=== PATIENT | male | born 1955 | race Two or more races ===

== ENCOUNTER 2021-06-10 19:24 | Inpatient (IN) | payer BC, OTHER ==
[~2021-06-10] VITALS: Ht 167.6 cm; Wt 67.8 kg
[2021-06-10 20:13] LABS: Basophils # (auto) 0 10 ^3/uL (0-0.2); Eosinophils # (auto) 0.2 10 ^3/uL (0-0.8); Eosinophils % (auto) 1.9 % (0.0-7.0); Hemoglobin 15.3 g/dL (13.5-17.5); Neutrophils # (auto) 5.5 10 ^3/uL (1.6-8.6)
[2021-06-10 20:15] LABS: Basophils % (auto) 0.2 % (0.0-2.0); Hematocrit 43.1 % (41.0-53.0); Lymphocytes # (auto) 2.4 10 ^3/uL (0.4-5.4); Mean Corpuscular Hemoglobin 34.2 pg (28.0-32.0); Mean Corpuscular Hgb Conc. 35.5 g/dL (32.0-36.0); Mean Corpuscular Volume 96.2 fL (80.0-100.0); Monocytes # (auto) 0.6 10 ^3/uL (0-1.3); Monocytes % (auto) 6.9 % (0.0-12.0); Nucleated Red Blood Cells % 0.2 %; Red Blood Cells 4.48 10^6/uL (4.5-5.90); Red Cell Distribution Width 14.3 % (11.8-14.3); White Blood Cell 8.7 10^3/uL (4.4-10.8)
[2021-06-10 20:26] LABS: Albumin 3.1 g/dL (3.4-5.0); Calcium 8.5 mg/dL (8.5-10.1)
[2021-06-10 20:29] LABS: BUN/Creatinine Ratio 8.6; Bilirubin, Total 0.8 mg/dL (0.2-1.0); Total Protein 7.2 g/dL (6.4-8.2)
[2021-06-10 20:36] LABS: Potassium 2.2 mmol/L (3.5-5.1)
[2021-06-10] MEDS ORDERED: POTASSIUM CHL 20 Meq TABLET PO ONE (21:00)
[2021-06-10] MEDS ORDERED: SODIUM CHLORIDE 0.9% 1,000 ML IV ONE (21:00)
[2021-06-10] MEDS ORDERED: ONDANSETRON HCL 4 MG/2 ML VIAL IV ONE (21:30)
[2021-06-10] MEDS ORDERED: MORPHINE SULFATE 4 MG/ML SYR/VIAL IV ONE (21:30)
[2021-06-10] MEDS ORDERED: VANCOMYCIN PER PHARMACY 0 MG IV SCH (21:30)
[2021-06-10] MEDS ORDERED: VANCOMYCIN 1GM/250ML 250 ML IV ONE (21:30)
[2021-06-10] MEDS ORDERED: NITROGLYCERIN 0.4 MG SL TAB SL PRN (22:00)
[2021-06-10] MEDS ORDERED: DEXTROSE (50%) 50ML SYRG IV PRN (22:00)
[2021-06-10] MEDS ORDERED: INSULIN LANTUS (GLARGINE) 1 /0.01ml (100units/ml) SC SCH (22:00)
[2021-06-10] MEDS ORDERED: HYDROcodone-ACET 5/325MG TAB PO PRN (22:00)
[2021-06-10] MEDS ORDERED: MORPHINE SULFATE INJECTION 2 MG/ML SYRG IV PRN (22:00)
[2021-06-10] MEDS ORDERED: ACETAMINOPHEN 325 MG TAB PO PRN (22:00)
[2021-06-10] MEDS ORDERED: ONDANSETRON HCL 4 MG/2 ML VIAL IV PRN (22:00)
[2021-06-10 22:31] LABS: Urine Bacteria FEW /hpf (None Seen); Urine Blood Negative /uL (Negative); Urine Specific Gravity 1.011 (1.001-1.035); Urine WBC 2 /hpf (0 - 3)
[2021-06-10 22:39] LABS: Lactic Acid w/Reflex 4.7 mmol/L (0.4-2.0)
[2021-06-10] MEDS: POTASSIUM CHL 20MEQ/100ML 100 ML IV SCH (23:00)
[2021-06-10] MEDS: SODIUM CHLORIDE 0.9% 1,000 ML IV SCH (23:20)
[2021-06-11] MEDS: ACCU-CHEK COMFORT CURVE STRIP VI SCH ×5 (00:07→21:39)
[2021-06-11] MEDS: ASCORBIC ACID 500 MG TAB PO SCH ×2 (00:12→09:50)
[2021-06-11] MEDS: InsuLIN REG 1unit/0.01ml Soln (100units/ml) SC SCH ×4 (00:12→21:40)
[2021-06-11] MEDS: POTASSIUM CHL 20MEQ/100ML 100 ML IV SCH (00:57)
[2021-06-11] MEDS: INSULIN LANTUS (GLARGINE) 1 /0.01ml (100units/ml) SC SCH ×2 (00:58→06:26)
[2021-06-11 01:39] VITALS: BP 141/75
[2021-06-11] MEDS ORDERED: GLIP5TAB12 PO (02:30)
[2021-06-11] MEDS ORDERED: DOXY100C2 PO (02:30)
[2021-06-11] MEDS ORDERED: METF-370 PO (02:30)
[2021-06-11] MEDS: MORPHINE SULFATE 4 MG/ML SYR/VIAL IV PRN ×3 (03:31→18:48)
[2021-06-11 05:11] VITALS: BP 119/70
[2021-06-11 05:57] LABS: Albumin 2.8 g/dL (3.4-5.0); BUN/Creatinine Ratio 11.5; Calcium 7.6 mg/dL (8.5-10.1)
[2021-06-11 06:00] LABS: Lactic Acid w/Reflex 2.2 mmol/L (0.4-2.0); Potassium 2.8 mmol/L (3.5-5.1); Total Protein 6.2 g/dL (6.4-8.2)
[2021-06-11 06:25] LABS: Basophils # (auto) 0 10 ^3/uL (0-0.2); Basophils % (auto) 0.7 % (0.0-2.0); Eosinophils # (auto) 0.2 10 ^3/uL (0-0.8); Eosinophils % (auto) 2.1 % (0.0-7.0); Hematocrit 39.1 % (41.0-53.0); Hemoglobin 14.3 g/dL (13.5-17.5); Lymphocytes # (auto) 2.5 10 ^3/uL (0.4-5.4); Lymphocytes % (auto) 33.4 % (10.0-50.0); Mean Corpuscular Hemoglobin 35.1 pg (28.0-32.0); Mean Corpuscular Volume 95.9 fL (80.0-100.0); Monocytes # (auto) 0.8 10 ^3/uL (0-1.3); Monocytes % (auto) 10.2 % (0.0-12.0); Neutrophils % (auto) 53.6 % (37.0-80.0); Nucleated Red Blood Cells % 0.2 %; Red Blood Cells 4.08 10^6/uL (4.5-5.90); Red Cell Distribution Width 14.3 % (11.8-14.3); White Blood Cell 7.4 10^3/uL (4.4-10.8)
[2021-06-11 06:26] LABS: Mean Corpuscular Hgb Conc. 36.6 g/dL (32.0-36.0)
[2021-06-11] MEDS ORDERED: POTASSIUM CHL 20 Meq TABLET PO ONE ×2 (06:45→21:15)
[2021-06-11] MEDS ORDERED: POTASSIUM CHL 20MEQ/100ML 100 ML IV ONE (06:45)
[2021-06-11] MEDS ORDERED: InsuLIN REG 1unit/0.01ml Soln (100units/ml) SC SCH (07:00)
[2021-06-11 09:00] VITALS: BP 144/86
[2021-06-11] MEDS: MULTIPLE VITAMIN TAB PO SCH (09:50)
[2021-06-11] MEDS ORDERED: ENOXAPARIN SOD 40 MG/0.4 ML SYRINGE SC SCH (10:00)
[2021-06-11] MEDS ORDERED: FAMOTIDINE 20 MG TAB PO SCH (10:00)
[2021-06-11] MEDS ORDERED: ZINC SULFATE 220mg CAP or TAB PO SCH (10:00)
[2021-06-11] MEDS ORDERED: MORPHINE SULFATE INJECTION 2 MG/ML SYRG IV ONE (11:15)
[2021-06-11 13:00] VITALS: BP 139/85
[2021-06-11] MEDS: FOLIC ACID 1 MG, MULTIPLE VITAMIN 10 ML, MAGNESIUM SULF SDV 50% 8 MEQ, THIAMINE INJ 100... INJ SCH ×5 (13:15)
[2021-06-11] MEDS: VANCOMYCIN 1GM/250ML 250 ML IV SCH ×2 (13:17→22:56)
[2021-06-11] MEDS: SODIUM CHLORIDE 0.9% 1,000 ML IV SCH (14:40)
[2021-06-11 16:47] VITALS: BP 144/96
[2021-06-11] MEDS ORDERED: InsuLIN REG 1unit/0.01ml Soln (100units/ml) SC ONE (18:30)
[2021-06-11 22:00] VITALS: BP 132/78
[2021-06-12] MEDS: MORPHINE SULFATE 4 MG/ML SYR/VIAL IV PRN ×4 (00:17→18:20)
[2021-06-12 05:00] VITALS: BP 121/79
[2021-06-12] MEDS: InsuLIN REG 1unit/0.01ml Soln (100units/ml) SC SCH ×4 (06:16→22:57)
[2021-06-12] MEDS: ACCU-CHEK COMFORT CURVE STRIP VI SCH ×4 (06:16→22:57)
[2021-06-12] MEDS: SODIUM CHLORIDE 0.9% 1,000 ML IV SCH ×2 (07:20→23:01)
[2021-06-12 09:00] VITALS: BP 141/79
[2021-06-12] MEDS: DOCUSATE SOD 100 MG CAP PO PRN (09:07)
[2021-06-12] MEDS: MULTIPLE VITAMIN TAB PO SCH (09:07)
[2021-06-12] MEDS: VANCOMYCIN 1GM/250ML 250 ML IV SCH ×2 (11:44→23:00)
[2021-06-12 12:01] LABS: Potassium 3.6 mmol/L (3.5-5.1)
[2021-06-12 12:05] LABS: BUN/Creatinine Ratio 7.8; Calcium 7.6 mg/dL (8.5-10.1)
[2021-06-12 13:00] VITALS: BP 130/68
[2021-06-12] MEDS: FOLIC ACID 1 MG, MULTIPLE VITAMIN 10 ML, MAGNESIUM SULF SDV 50% 8 MEQ, THIAMINE INJ 100... INJ SCH ×5 (14:05)
[2021-06-12 17:00] VITALS: BP 138/70
[2021-06-12 22:00] VITALS: BP 144/88
[2021-06-12] MEDS ORDERED: MORPHINE SULFATE INJECTION 2 MG/ML SYRG ONE (22:33)
[2021-06-13 05:00] VITALS: BP 142/87
[2021-06-13] MEDS: ACCU-CHEK COMFORT CURVE STRIP VI SCH ×4 (06:46→21:20)
[2021-06-13] MEDS: MORPHINE SULFATE 4 MG/ML SYR/VIAL IV PRN ×4 (06:47→22:03)
[2021-06-13] MEDS: InsuLIN REG 1unit/0.01ml Soln (100units/ml) SC SCH ×4 (06:48→21:20)
[2021-06-13 08:13] VITALS: BP 131/84
[2021-06-13] MEDS: MULTIPLE VITAMIN TAB PO SCH (09:57)
[2021-06-13] MEDS: VANCOMYCIN 1GM/250ML 250 ML IV SCH ×2 (10:39→21:08)
[2021-06-13 12:58] VITALS: BP 119/72
[2021-06-13] MEDS: DOCUSATE SOD 100 MG CAP PO PRN (13:09)
[2021-06-13] MEDS: FOLIC ACID 1 MG, MULTIPLE VITAMIN 10 ML, MAGNESIUM SULF SDV 50% 8 MEQ, THIAMINE INJ 100... INJ SCH ×5 (14:02)
[2021-06-13] MEDS: SODIUM CHLORIDE 0.9% 1,000 ML IV SCH (16:40)
[2021-06-13] MEDS: chlordiazePOXIDE HCL 25 MG CAP PO SCH ×2 (17:31→23:40)
[2021-06-13 22:21] VITALS: BP 121/73
[2021-06-14] MEDS: MORPHINE SULFATE 4 MG/ML SYR/VIAL IV PRN (02:40)
[2021-06-14 05:28] VITALS: BP 149/76
[2021-06-14 05:55] LABS: Albumin 2.6 g/dL (3.4-5.0); Calcium 7.7 mg/dL (8.5-10.1)
[2021-06-14 05:56] LABS: Basophils # (auto) 0 10 ^3/uL (0-0.2); Basophils % (auto) 0.6 % (0.0-2.0); Lymphocytes # (auto) 1.5 10 ^3/uL (0.4-5.4); Red Cell Distribution Width 14.6 % (11.8-14.3)
[2021-06-14 05:59] LABS: BUN/Creatinine Ratio 12.5; Total Protein 6.1 g/dL (6.4-8.2)
[2021-06-14 06:01] LABS: Eosinophils # (auto) 0.2 10 ^3/uL (0-0.8); Eosinophils % (auto) 2.6 % (0.0-7.0); Hemoglobin 13.7 g/dL (13.5-17.5); Lymphocytes % (auto) 22.7 % (10.0-50.0); Mean Corpuscular Hemoglobin 35.3 pg (28.0-32.0); Mean Corpuscular Hgb Conc. 35.9 g/dL (32.0-36.0); Mean Corpuscular Volume 98.2 fL (80.0-100.0); Monocytes # (auto) 0.7 10 ^3/uL (0-1.3); Monocytes % (auto) 10.4 % (0.0-12.0); Neutrophils # (auto) 4.2 10 ^3/uL (1.6-8.6); Neutrophils % (auto) 63.7 % (37.0-80.0); Nucleated Red Blood Cells % 0.1 %; Red Blood Cells 3.87 10^6/uL (4.5-5.90); White Blood Cell 6.6 10^3/uL (4.4-10.8)
[2021-06-14] MEDS: chlordiazePOXIDE HCL 25 MG CAP PO SCH ×2 (06:26→11:40)
[2021-06-14] MEDS: ACCU-CHEK COMFORT CURVE STRIP VI SCH ×3 (06:27→16:22)
[2021-06-14] MEDS: InsuLIN REG 1unit/0.01ml Soln (100units/ml) SC SCH ×3 (06:27→16:22)
[2021-06-14 06:35] LABS: Potassium 2.8 mmol/L (3.5-5.1)
[2021-06-14] MEDS: VANCOMYCIN 1GM/250ML 250 ML IV SCH (06:58)
[2021-06-14] MEDS ORDERED: POTASSIUM CHL 20 Meq TABLET PO ONE (07:15)
[2021-06-14 09:00] VITALS: BP 106/63
[2021-06-14] MEDS: SODIUM CHLORIDE 0.9% 1,000 ML IV SCH (09:20)
[2021-06-14] MEDS: MULTIPLE VITAMIN TAB PO SCH (09:56)
[2021-06-14] MEDS: FOLIC ACID 1 MG, MULTIPLE VITAMIN 10 ML, MAGNESIUM SULF SDV 50% 8 MEQ, THIAMINE INJ 100... INJ SCH ×5 (12:00)
[2021-06-14 13:40] VITALS: BP 111/69
== END 2021-06-14 16:50 | disposition home or self-care (01) | DRG 602 ==
LOC: ER 19:26 → TELE 21:47 → TELE-WESTW 23:38
PROVIDERS: ADMIT Nurse Practitioner Family; ATTEND Family Medicine
DX: L03.012 Cellulitis of left finger (principal); G93.41 Metabolic encephalopathy; E87.1 Hypo-osmolality and hyponatremia; M86.60 Other chronic osteomyelitis, unspecified site; E11.21 Type 2 diabetes mellitus with diabetic nephropathy; E11.40 Type 2 diabetes mellitus with diabetic neuropathy, unspecified; E11.69 Type 2 diabetes mellitus with other specified complication; E87.6 Hypokalemia; F10.229 Alcohol dependence with intoxication, unspecified; G20 Parkinson's disease; I10 Essential (primary) hypertension; Z20.822 Contact with and (suspected) exposure to COVID-19; E11.65 Type 2 diabetes mellitus with hyperglycemia; Z82.3 Family history of stroke
CPT/HCPCS: 36415; 73140; 73218; 80048; 80053; 80202; 80320; 81001; 82962; 83036; 83605; 83735; 84132; 84443; 84550; 85025; 86141; 87040; 87426; 93005; 96365; 96375; 99291; G0378; J1815; J2405; J3480

== ENCOUNTER 2024-03-10 10:03 | Inpatient (IN) | payer OTHER, MEDICAID ==
[~2024-03-10] VITALS: Ht 167.6 cm; Wt 78.3 kg
[2024-03-10] VITALS (10 sets, daily range): BP systolic 113–143; BP diastolic 63–85; PULSE 68–114; RESP 22–30; TEMP 98.2–99.6; O2SAT 92–94
[~2024-03-10 10:03] MED LIST: DOXY100C4 PO; GLIP5TAB21 PO; METF-370 PO
[2024-03-10 11:17] LABS: Eosinophils # (auto) 0 10 ^3/uL (0-0.8); Neutrophils % (auto) 85.2 % (37.0-80.0)
[2024-03-10 11:20] LABS: Basophils # (auto) 0.1 10 ^3/uL (0-0.2); Basophils % (auto) 0.5 % (0.0-2.0); Eosinophils % (auto) 0.1 % (0.0-7.0); Hematocrit 22.9 % (41.0-53.0); Mean Corpuscular Hemoglobin 18.4 pg (28.0-32.0); Mean Corpuscular Hgb Conc. 27.4 g/dL (32.0-36.0); Mean Corpuscular Volume 67.1 fL (80.0-100.0); Monocytes # (auto) 1.1 10 ^3/uL (0-1.3); Monocytes % (auto) 7.2 % (0.0-12.0); Neutrophils # (auto) 12.7 10 ^3/uL (1.6-8.6); Nucleated Red Blood Cells % 1.5 %; Red Blood Cells 3.42 10^6/uL (4.5-5.90); White Blood Cell 14.9 10^3/uL (4.4-10.8)
[2024-03-10 11:44] LABS: Alanine Aminotransferase 25 U/L (7-40); Alkaline Phosphatase 79 U/L (46-116); Calcium 7.9 mg/dL (8.7-10.4); Chloride 97 mmol/L (98-107)
[2024-03-10 11:45] LABS: Albumin 3.9 g/dL (3.2-4.8); Anion Gap 10 (5-15); Aspartate Aminotransferase 34 U/L (13-40); BUN/Creatinine Ratio 27.7 (10.0-20.0); Bilirubin, Total 0.4 mg/dL (0.2-1.0); Blood Urea Nitrogen 62 mg/dL (9-23); Carbon Dioxide 20 mmol/L (20-30); Glucose 290 mg/dL (74-106); Potassium 4.3 mmol/L (3.5-5.1); Sodium 127 mmol/L (136-145); Total Protein 6.9 g/dL (5.7-8.2)
[2024-03-10 11:47] LABS: Lactic Acid w/Reflex 2.8 mmol/L (0.4-2.0)
[2024-03-10 11:56] LABS: Red Cell Distribution Width 20.8 % (11.8-14.3)
[2024-03-10 12:00] LABS: Hemoglobin 6.3 g/dL (13.5-17.5)
[2024-03-10] MEDS: cefTRIAXone 2GM/50ML D5W 50 ML IV ONE (12:28)
[2024-03-10] MEDS: SODIUM CHLORIDE 0.9% 1,000 ML IV ONE (12:28)
[2024-03-10 12:29] LABS: Base Excess -5.1 mmol/L (-2.0-2.0)
[2024-03-10] MEDS: DexAMETHasone SOD PHOS 10MG/1ML VIAL INJ IV ONE (12:29)
[2024-03-10] MEDS: ALBUTEROL SULF 2.5 MG/0.5ML(0.5%) NEB SOLN NEB ONE (12:38)
[2024-03-10] MEDS: BUDESONIDE (INHALATION) 0.5 MG/2 ML NEB NEB ONE (12:38)
[2024-03-10] MEDS: IPRATROPIUM BROM 0.5 MG/2.5ML INH SOL NEB ONE (12:39)
[2024-03-10 13:35] LABS: Platelet Estimate Adequate
[2024-03-10 13:36] LABS: Anisocytosis Slight; Hypochromia Marked
[2024-03-10 14:25] LABS: Urine Bacteria MANY /hpf (None Seen); Urine Blood Negative /uL (Negative); Urine Clarity Turbid (Clear); Urine Color Light-Yellow (Yellow); Urine Hyaline Cast FEW /lpf (0 - 2); Urine Mucus FEW (None Seen); Urine Protein, UAD TRACE (Negative); Urine Specific Gravity 1.014 (1.001-1.035); Urine Urobilinogen Normal (Negative); Urine WBC 55 /hpf (0 - 3); Urine WBC Clumps PRESENT /hpf (None Seen)
[2024-03-10 15:20] LABS: COVID19 ANTIGEN SOFIA FIA NEGATIVE (NEGATIVE); Rapid Influenza A Negative (Negative); Rapid Influenza B Negative (Negative)
[2024-03-10] MEDS ORDERED: NITROGLYCERIN 0.4 MG SL TAB SL PRN (15:30)
[2024-03-10] MEDS ORDERED: ACETAMINOPHEN 325 MG TAB PO PRN (15:30)
[2024-03-10 17:29] LABS: Amphetamine Screen, Urine Neg (NEGATIVE); Barbiturate Scree,Urine Neg (NEGATIVE); Benzodiazephine Screen, Urine Neg (NEGATIVE); Cocaine Screen, Urine Neg (NEGATIVE); Opiate Scree,Urine Neg (NEGATIVE); Phencyclidine Screen, Urine Neg (NEGATIVE)
[2024-03-10 17:30] LABS: Cannabinoid Screen, Urine Neg (NEGATIVE)
[2024-03-10 17:41] LABS: Triglycerides 163 mg/dL (< 150)
[2024-03-10 17:42] LABS: LDL Cholesterol 79 mg/dL (< 100)
[2024-03-10 17:43] LABS: Cholesterol 118 mg/dL (< 200); HDL Cholesterol 18 mg/dL (40-59)
[2024-03-10] MEDS: VANCOMYCIN 1GM/200ML 200 ML IV ONE (19:02)
[2024-03-10] MEDS: FUROSEMIDE 20 MG/2 ML VIAL IV ONE (19:02)
[2024-03-10] MEDS: HYDROcodone-ACET 5/325MG TAB PO PRN (19:56)
[2024-03-10] MEDS: ONDANSETRON HCL 4 MG/2 ML VIAL IV PRN (19:56)
[2024-03-10] MEDS: PANTOPRAZOLE 40 MG/10 ML VIAL INJ IV ONE (23:53)
[2024-03-10] MEDS: PANTOPRAZOLE 80 MG in SODIUM CHL 0.9% 100 ML IV ONE (23:53)
[2024-03-11] VITALS (10 sets, daily range): BP systolic 123–148; BP diastolic 72–87; PULSE 94–106; RESP 16–24; TEMP 98.4–99.4; O2SAT 89–97
[2024-03-11] MEDS: PANTOPRAZOLE 40mg/50ML NS AE 50 ML IV SCH (00:17)
[2024-03-11] MEDS: CEFEPIME 1GM/ 50ML 50 ML IV SCH (00:17)
[2024-03-11] MEDS: MORPHINE SULFATE INJ 2 MG/ml SYRG IV PRN (00:18)
[2024-03-11 00:38] LABS: Basophils # (auto) 0 10 ^3/uL (0-0.2); Eosinophils # (auto) 0 10 ^3/uL (0-0.8); Hemoglobin 8.3 g/dL (13.5-17.5); Lymphocytes # (auto) 0.5 10 ^3/uL (0.4-5.4); Mean Corpuscular Volume 67.8 fL (80.0-100.0); Monocytes # (auto) 0.2 10 ^3/uL (0-1.3)
[2024-03-11 00:39] LABS: Hematocrit 27.1 % (41.0-53.0); Lymphocytes % (auto) 4.1 % (10.0-50.0); Mean Corpuscular Hemoglobin 20.6 pg (28.0-32.0); Mean Corpuscular Hgb Conc. 30.4 g/dL (32.0-36.0); Monocytes % (auto) 1.3 % (0.0-12.0); Neutrophils # (auto) 10.8 10 ^3/uL (1.6-8.6); Neutrophils % (auto) 94.6 % (37.0-80.0); Nucleated Red Blood Cells % 2.4 %; White Blood Cell 11.4 10^3/uL (4.4-10.8)
[2024-03-11 00:42] LABS: Red Cell Distribution Width 25.4 % (11.8-14.3)
[2024-03-11 01:54] LABS: Anisocytosis Moderate; Hypochromia Marked; Platelet Estimate Adequate; Target Cell FEW
[2024-03-11] MEDS ORDERED: VANCOMYCIN PER PHARMACY 0 MG IV SCH (10:00)
[2024-03-11] MEDS: FUROSEMIDE 40 MG/4 ML VIAL IV SCH (10:36)
[2024-03-11 11:06] LABS: Triglycerides 140 mg/dL (< 150)
[2024-03-11 11:07] LABS: LDL Cholesterol 90 mg/dL (< 100)
[2024-03-11 11:08] LABS: Cholesterol 124 mg/dL (< 200); HDL Cholesterol 20 mg/dL (40-59)
[2024-03-11 12:09] LABS: Protein, Urine 39.9 mg/dL (0.0-11.9)
[2024-03-11 12:10] LABS: Creatinine, Urine 40.35 mg/dL (30.0-125.0); Urine Protein/Creatinine Ratio 0.99
[2024-03-11 12:39] LABS: Folate (Folic Acid) 11.11 ng/mL (>5.38)
[2024-03-11 12:40] LABS: Free T4 (Free Thyroxine) 0.87 ng/dL (0.89-1.76)
[2024-03-11 12:41] LABS: Phosphorus 5.2 mg/dL (2.4-5.1)
[2024-03-11 13:01] LABS: Magnesium 2.4 mg/dL (1.6-2.6)
[2024-03-11 13:25] LABS: Hemoglobin 10.7 g/dL (13.5-17.5)
[2024-03-11 13:27] LABS: Hematocrit 34.3 % (41.0-53.0); Mean Corpuscular Hemoglobin 22.9 pg (28.0-32.0); Mean Corpuscular Hgb Conc. 31.3 g/dL (32.0-36.0); Mean Corpuscular Volume 73.1 fL (80.0-100.0); Red Blood Cells 4.69 10^6/uL (4.5-5.90); White Blood Cell 9.6 10^3/uL (4.4-10.8)
[2024-03-11 13:38] LABS: Anion Gap 9 (5-15); Carbon Dioxide 22 mmol/L (20-30); Chloride 100 mmol/L (98-107); Potassium 4.6 mmol/L (3.5-5.1); Sodium 131 mmol/L (136-145)
[2024-03-11 13:39] LABS: Calcium 8.1 mg/dL (8.5-10.1)
[2024-03-11 13:44] LABS: BUN/Creatinine Ratio 30.2 (10.0-20.0); Blood Urea Nitrogen 65 mg/dL (9-23); Glucose 342 mg/dL (74-106); Red Cell Distribution Width 26.5 % (11.8-14.3)
[2024-03-11 13:45] LABS: Basophils % (manual) 0 (0.0-2.0); Blast Cells 0; Eosinophils % (manual) 0 (0-7); Metamyelocytes % 0; Myelocytes % 0; Promyelocytes % 0; Reactive Lymphocytes 0
[2024-03-11 14:55] LABS: Band Neutrophils % (manual) 2; Lymphocytes % (manual) 13 (10.0-50.0); Monocytes % (manual) 4 (0-12)
[2024-03-11 14:56] LABS: Hypochromia Moderate
[2024-03-11 14:57] LABS: Platelet Estimate Adequate
[2024-03-11 14:58] LABS: Anisocytosis Moderate
[2024-03-11] MEDS: VANCOMYCIN 1GM/200ML 200 ML IV ONE (14:59)
[2024-03-11 15:56] LABS: Basophils # (auto) 0 10 ^3/uL (0-0.2); Basophils % (auto) 0.2 % (0.0-2.0); Eosinophils # (auto) 0 10 ^3/uL (0-0.8); Hematocrit 34.9 % (41.0-53.0); Hemoglobin 11.1 g/dL (13.5-17.5); Lymphocytes # (auto) 0.8 10 ^3/uL (0.4-5.4); Lymphocytes % (auto) 8.1 % (10.0-50.0); Mean Corpuscular Hemoglobin 23.1 pg (28.0-32.0); Mean Corpuscular Hgb Conc. 31.7 g/dL (32.0-36.0); Mean Corpuscular Volume 72.7 fL (80.0-100.0); Monocytes # (auto) 0.9 10 ^3/uL (0-1.3); Monocytes % (auto) 9.2 % (0.0-12.0); Neutrophils # (auto) 8.2 10 ^3/uL (1.6-8.6); Neutrophils % (auto) 82.5 % (37.0-80.0); White Blood Cell 9.9 10^3/uL (4.4-10.8)
[2024-03-11 15:58] LABS: Nucleated Red Blood Cells % 3.4 %; Red Cell Distribution Width 26.8 % (11.8-14.3)
[2024-03-11 17:31] LABS: Anisocytosis Moderate; Platelet Estimate Adequate
[2024-03-11 17:32] LABS: Hypochromia Moderate
[2024-03-11] MEDS: ATORVASTATIN 20 MG TAB PO SCH (23:16)
[2024-03-11] MEDS ORDERED: AML5T PO (23:17)
[2024-03-11] MEDS ORDERED: CAR25T PO (23:19)
[2024-03-11] MEDS ORDERED: FENO1CAP4 OR (23:20)
[2024-03-11] MEDS ORDERED: LEVO25TA6 PO (23:21)
[2024-03-11] MEDS ORDERED: CHOL20007 OR (23:22)
[2024-03-11] MEDS ORDERED: QUET25TA37 PO (23:24)
[2024-03-11] MEDS ORDERED: LORA2TAB89 PO (23:24)
[2024-03-11] MEDS ORDERED: HYDR-4798 PO (23:26)
[2024-03-12] VITALS (7 sets, daily range): BP systolic 125–146; BP diastolic 64–85; PULSE 80–100; RESP 16–19; TEMP 98.2–98.6; O2SAT 94–96
[2024-03-12] MEDS: FUROSEMIDE 40 MG/4 ML VIAL IV ONE (01:52)
[2024-03-12 06:20] LABS: Basophils # (auto) 0 10 ^3/uL (0-0.2); Eosinophils # (auto) 0 10 ^3/uL (0-0.8)
[2024-03-12 06:23] LABS: Basophils % (auto) 0.1 % (0.0-2.0); Eosinophils % (auto) 0.1 % (0.0-7.0); Hematocrit 34.5 % (41.0-53.0); Hemoglobin 10.8 g/dL (13.5-17.5); Lymphocytes # (auto) 1.2 10 ^3/uL (0.4-5.4); Lymphocytes % (auto) 9.6 % (10.0-50.0); Mean Corpuscular Hemoglobin 22.7 pg (28.0-32.0); Mean Corpuscular Hgb Conc. 31.4 g/dL (32.0-36.0); Mean Corpuscular Volume 72.2 fL (80.0-100.0); Monocytes % (auto) 8.5 % (0.0-12.0); Neutrophils # (auto) 9.8 10 ^3/uL (1.6-8.6); Neutrophils % (auto) 81.7 % (37.0-80.0); Red Blood Cells 4.78 10^6/uL (4.5-5.90)
[2024-03-12 06:26] LABS: Anion Gap 9 (5-15); Calcium 8.4 mg/dL (8.5-10.1); Carbon Dioxide 23 mmol/L (20-30); Chloride 100 mmol/L (98-107); Potassium 3.9 mmol/L (3.5-5.1); Sodium 132 mmol/L (136-145)
[2024-03-12 06:31] LABS: Red Cell Distribution Width 26.5 % (11.8-14.3)
[2024-03-12 06:32] LABS: BUN/Creatinine Ratio 23.5 (10.0-20.0)
[2024-03-12 06:50] LABS: Blood Urea Nitrogen 47 mg/dL (9-23); Glucose 229 mg/dL (74-106)
[2024-03-12 07:02] LABS: Hypochromia Moderate; Ovalocytes FEW; Platelet Estimate Adequate
[2024-03-12] MEDS: FUROSEMIDE 40 MG/4 ML VIAL IV SCH (09:17)
[2024-03-12] MEDS ORDERED: HYDR-4795 PO (09:32)
[2024-03-12] MEDS ORDERED: LEVO50TA7 PO (09:32)
[2024-03-12] MEDS ORDERED: PREG100C PO (09:37)
[2024-03-12] MEDS ORDERED: CHLO25TA2 PO (09:37)
[2024-03-12] MEDS ORDERED: MET25T PO (09:37)
[2024-03-12] MEDS: CEFPODOXIME PROXETIL 200 MG TAB PO SCH (10:00)
[2024-03-12] MEDS: CYANOCOBALAMIN (B-12) 1000 MCG/1 ML VIAL IM ONE (11:21)
[2024-03-13 05:00] VITALS: BP 124/63; PULSE 66; RESP 14; TEMP 97.8; O2SAT 95
[2024-03-13 08:00] VITALS: PULSE 79
[2024-03-13 09:00] VITALS: BP 143/78; PULSE 81; RESP 17; TEMP 97.9; O2SAT 99
[2024-03-13] MEDS: CYANOCOBALAMIN 500 MCG TAB PO SCH (09:07)
[2024-03-13 10:00] VITALS: O2SAT 87
[2024-03-13 10:05] VITALS: O2SAT 94
[2024-03-13 13:00] VITALS: BP 135/69; PULSE 75; RESP 16; TEMP 97.3; O2SAT 97
[2024-03-13] MEDS ORDERED: PANT40T PO (14:41)
[2024-03-13] MEDS ORDERED: FURO1TAB31 PO (14:41)
[2024-03-13] MEDS ORDERED: ATOR20TA50 PO (14:41)
[2024-03-13] MEDS ORDERED: CEFP200T15 PO (14:41)
== END 2024-03-13 16:02 | disposition hospice, home (50) | DRG 871 ==
LOC: ER 10:03 → EDBD 10:03 → TELE 16:02 → TELE-WESTW 03-11 22:37
PROVIDERS: ADMIT Internal Medicine; ATTEND Internal Medicine
PROC: 30233N1 Transfusion of Nonautologous Red Blood Cells into Peripheral Vein, Percutaneous Approach (ICD-10-PCS; principal; 2024-03-10)
DX: A41.9 Sepsis, unspecified organism (principal); G92.8 Other toxic encephalopathy; I21.4 Non-ST elevation (NSTEMI) myocardial infarction; J18.9 Pneumonia, unspecified organism; J96.01 Acute respiratory failure with hypoxia; N39.0 Urinary tract infection, site not specified; I13.0 Hypertensive heart and chronic kidney disease with heart failure and stage 1 through stage 4 chronic kidney disease, or unspecified chronic kidney disease; N17.9 Acute kidney failure, unspecified; G91.2 (Idiopathic) normal pressure hydrocephalus; E87.1 Hypo-osmolality and hyponatremia; K92.2 Gastrointestinal hemorrhage, unspecified; J98.11 Atelectasis; I50.9 Heart failure, unspecified; Z20.822 Contact with and (suspected) exposure to COVID-19; D50.0 Iron deficiency anemia secondary to blood loss (chronic); E11.22 Type 2 diabetes mellitus with diabetic chronic kidney disease; G20.A1 Parkinson's disease without dyskinesia, without mention of fluctuations; E03.9 Hypothyroidism, unspecified; K74.60 Unspecified cirrhosis of liver; H54.61 Unqualified visual loss, right eye, normal vision left eye; F17.200 Nicotine dependence, unspecified, uncomplicated; E11.42 Type 2 diabetes mellitus with diabetic polyneuropathy; F10.10 Alcohol abuse, uncomplicated; Y90.9 Presence of alcohol in blood, level not specified; I49.3 Ventricular premature depolarization; N18.9 Chronic kidney disease, unspecified; Z79.899 Other long term (current) drug therapy; Z79.84 Long term (current) use of oral hypoglycemic drugs; Z51.5 Encounter for palliative care; Z82.3 Family history of stroke; Z74.01 Bed confinement status
CPT/HCPCS: 36415; 36600; 70450; 71045; 76775; 80048; 80053; 80061; 80202; 80307; 81001; 82140; 82270; 82306; 82570; 82607; 82746; 82805; 82962; 83605; 83735; 83880; 83935; 83970; 84100; 84156; 84300; 84439; 84443; 84484; 85007; 85025; 85027; 85379; 86850; 86900; 86901; 86920; 87040; 87086; 87426; 87804; 93005; 93306; 94640; 95819; 97163; C9113; G0378; J1100; J2405